=== PATIENT | female | born 1970 | race Caucasian/White ===

== ENCOUNTER 2018-12-27 16:53 | Inpatient (IN) | payer MEDICAID ==
[2019-01-04] MEDS ORDERED: KLONOPIN1 MG PO (12:49)
[2019-01-04] MEDS ORDERED: ESTRACE2 MG PO (12:49)
[2019-01-04] MEDS ORDERED: PROVERA 5 MG TAB5 MG PO (12:49)
[2019-01-04] MEDS ORDERED: NEXIUM20 MG PO (12:52)
[2019-01-07 08:07] LABS: HEMATOCRIT 40.3 % (36.0-48.0); HEMOGLOBIN 13.7 g/dL (12-16); MCH 31.5 pg (26.0-34.0); MCV 92.6 fL (80.0-100.0); MEAN PLATELET VOLUME 11.4 fL (7.4-10.4); RBC 4.35 10x6/uL (4.00-5.40); RDW 12.6 % (11.5-14.5); WBC 5.9 10x3/uL (4.8-10.8)
[2019-01-07 09:43] VITALS: BP 128/74; BMI 22.0
--- NOTE | 2019-01-07 12:33 | NUR ---
NOTICED SMALL WELP THAT IS RED ABOVE PT IV SITE IN LEFT ARM. IMMEDIATELY STOPPED IV FLUIDS AND MONITORED. SYMPTOMS DID NOT WORSEN. PT DOES NOT COMPLAIN OF ITCHING OR PAIN AT SITE. NOTIFIED ANESTHESIA. V.O TO CONTINUE TO MONITOR AND IF WORSENS LET THEM KNOW. WILL CONTINUE TO [facility] 1240 REASSESSED IV SITE. WELP HAS NOT GOTTEN WORSE OR EXTENDED. PT STILL C/O OF NO PAIN OR ITHCING.WILL CONTINUE TO [facility]
[2019-01-07 13:09] VITALS: BP 109/53
--- NOTE | 2019-01-07 14:57 | NUR ---
PT RECIVED FROM OR. NO SIGNS OF DISTRESS. IV TO LEFT WRIST PATENT NO REDNESS OR TENDERNESS. DENIES ANY FUTHER NEED AT THIS TIME.
[2019-01-07 18:32] VITALS: BP 109/53; BMI 21.8
--- NOTE | 2019-01-07 23:03 | NUR ---
I have reviewed this patient and I concur with the Shift Assessment completed by the Licensed Practical Nurse today this shift.
[2019-01-08] VITALS: BP 106/62
[2019-01-08 04:30] VITALS: BP 131/66
[2019-01-08 05:16] LABS: BASOPHILS 0.1 % (0-2); EOSINOPHILS 0.8 % (0-7); HEMATOCRIT 36.1 % (36.0-48.0); HEMOGLOBIN 11.9 g/dL (12-16); IMMATURE GRANULOCYTES 0.2 % (0-5); MCH 31.2 pg (26.0-34.0); MCV 94.5 fL (80.0-100.0); MEAN PLATELET VOLUME 12.3 fL (7.4-10.4); MONOCYTES 7.7 % (2-11); NEUTROPHILS 72.2 % (40-80); PLATELET COUNT 173 10x3/uL (130-400); RBC 3.82 10x6/uL (4.00-5.40); RDW 12.6 % (11.5-14.5)
[2019-01-08 05:38] LABS: ALBUMIN 2.3 g/dL (3.4-5.0); ALKALINE PHOSPHATASE 80 U/L (46-116); ALT (SGPT) 22 U/L (10-68); BILIRUBIN - TOTAL 0.26 mg/dL (0.2-1.3); CALC OSMOLALITY 276 mosm/kg (275-300); CARBON DIOXIDE 24.6 mmol/L (21.0-32.0); CHLORIDE - SERUM 108 mmol/L (98-107); CREATININE - SERUM 0.7 mg/dL (0.6-1.3); GLUCOSE 122 mg/dL (74-106); POTASSIUM - SERUM 4.3 mmol/L (3.5-5.1); PROTEIN - SERUM 5.4 g/dL (6.4-8.2); SODIUM 140 mmol/L (136-145); UREA NITROGEN 5 mg/dL (7-18); eGFR NON AFRICAN AMERICAN > 90 mL/min (90-120)
[2019-01-08 05:48] LABS: WBC 9.7 10x3/uL (4.8-10.8)
[2019-01-08 07:00] VITALS: BP 128/74
--- NOTE | 2019-01-08 08:03 | NUR ---
SLEEPING ON LEFT SIDE.PT IS WITHOUT DISTRESS.
[2019-01-08] MEDS ORDERED: ZOFRAN ODT4 MG/UDTAB PO (08:18)
[2019-01-08] MEDS ORDERED: HYDROCODON-ACE1 EAC7 PO (08:18)
[2019-01-08 11:00] VITALS: BP 104/59
--- NOTE | 2019-01-11 13:30 | MORECARE ---
CASE MANAGEMENT DISCHARGE SUMMARY PATIENT: ABDULLAHI EAST UNIT: [id number] ADM DATE: 01/07/19 AGE: 48 : 70 SEX: F ROOM/BED: D.2224 AUTHOR: STACIA FOURNIER PHYSICIAN: REFERRING PHYSICIAN: SERG BASURTO MD DATE OF SERVICE: 01/11/19 Discharge Plan Patient Name: ABDULLAHI EAST [facility] [facility] 1970 Planned Disposition: Anticipated Discharge Date: Discharge Date: 01/08/2019 Expected LOS: 0 Initial Reviewer: [email or web address] Initial Review Date: 01/11/2019 Generated: 01/11/19 2:29 pm Patient Name: ABDULLAHI EAST Page 23791 at 1330 All edits/amendments must be made on the electronic document DICTATION DATE: 01/11/19 1329 SUPERVISOR PIT AND AUXILIARIES: CALEB 01/11/19 1329 RPT#: [id number] DC DATE:01/08/19 STATUS: DIS IN [facility] [address] [facility] [place] [address] END OF REPORT
== END 2019-01-08 14:01 | disposition home or self-care (01) | DRG 328 ==
LOC: D.MS 01-07 07:44 → D.SDCHOLD 01-07 07:44 → D.OPS 01-07 10:00 → EDSTATUS 01-07 10:15 → D.OPS 01-07 10:15 → D.MS 01-07 10:15 → D.PAN 01-07 10:15 → D.MS 01-07 12:56
PROVIDERS: Anesthesiology; ADMIT Surgery; ATTEND Surgery
PROC: 0BQT4ZZ Repair Diaphragm, Percutaneous Endoscopic Approach (ICD-10-PCS; principal; 2019-01-07 10:00)
PROC: 0DV44CZ Restriction of Esophagogastric Junction with Extraluminal Device, Percutaneous Endoscopic Approach (ICD-10-PCS; 2019-01-07 10:00)
DX: K21.9 Gastro-esophageal reflux disease without esophagitis (principal); K44.9 Diaphragmatic hernia without obstruction or gangrene

== ENCOUNTER 2019-01-09 03:42 | Observation (INO) | payer MEDICAID ==
[~2019-01-09] VITALS: Ht 162.6 cm; Wt 57.3 kg
[~2019-01-09 03:42] MED LIST: ESTRACE2 MG PO; HYDROCODON-ACE1 EAC7 PO; KLONOPIN1 MG PO; NEXIUM20 MG PO; PROVERA 5 MG TAB5 MG PO; ZOFRAN ODT4 MG/UDTAB PO
[2019-01-09 04:34] LABS: BASOPHILS 0.2 % (0-2); EOSINOPHILS 2.4 % (0-7); HEMATOCRIT 40.1 % (36.0-48.0); HEMOGLOBIN 13.8 g/dL (12-16); IMMATURE GRANULOCYTES 0.2 % (0-5); LYMPHOCYTES 17.8 % (15-50); MCH 31.9 pg (26.0-34.0); MCHC 34.4 g/dL (31.0-37.0); MCV 92.8 fL (80.0-100.0); MEAN PLATELET VOLUME 12.6 fL (7.4-10.4); MONOCYTES 8.8 % (2-11); NEUTROPHILS 70.6 % (40-80); RBC 4.32 10x6/uL (4.00-5.40); RDW 12.8 % (11.5-14.5); WBC 8.9 10x3/uL (4.8-10.8)
[2019-01-09 04:36] LABS: PLATELET COUNT 222 10x3/uL (130-400)
[2019-01-09 04:37] LABS: APPEARANCE HAZY (CLEAR); BILIRUBIN NEGATIVE (NEGATIVE); COLOR YELLOW (YELLOW); GLUCOSE NEGATIVE (NEGATIVE); KETONE NEGATIVE (NEGATIVE); NITRITE NEGATIVE (NEGATIVE); PROTEIN NEGATIVE (NEGATIVE); UROBILINOGEN NORMAL (NORMAL)
[2019-01-09 05:12] LABS: ALBUMIN 2.5 g/dL (3.4-5.0); ALKALINE PHOSPHATASE 102 U/L (46-116); AMYLASE - SERUM 23 U/L (25-115); BILIRUBIN - TOTAL 0.33 mg/dL (0.2-1.3); CALC OSMOLALITY 276 mosm/kg (275-300); CALCIUM 7.8 mg/dL (8.5-10.1); CARBON DIOXIDE 23.9 mmol/L (21.0-32.0); CHLORIDE - SERUM 107 mmol/L (98-107); CREATININE - SERUM 0.7 mg/dL (0.6-1.3); GLUCOSE 104 mg/dL (74-106); LIPASE 64 U/L (73-393); PROTEIN - SERUM 5.6 g/dL (6.4-8.2); SODIUM 140 mmol/L (136-145); TROPONIN-I < 0.017 ng/mL (0.000-0.060); UREA NITROGEN 6 mg/dL (7-18); eGFR NON AFRICAN AMERICAN > 90 mL/min (90-120)
[2019-01-09 05:13] LABS: ALT (SGPT) 36 U/L (10-68); POTASSIUM - SERUM 3.5 mmol/L (3.5-5.1)
[2019-01-09 08:39] VITALS: BP 132/77
[2019-01-09 13:28] VITALS: BP 112/66
--- NOTE | 2019-01-09 14:45 | NUR ---
PT AND WANTED PT DIET ADVANCED TO REGUALR FROM FULL LIQUID DIET. PT AND MADE AWARE THAT THIS NURSE SPOKE WITH DR. BASURTO AND HE GIVE THE OKAY FOR DIET.
[2019-01-09 18:03] VITALS: BP 104/60
[2019-01-09 18:37] VITALS: BP 112/66; Ht 162.6 cm; Wt 57.3 kg
[2019-01-09 20:00] VITALS: BP 114/57
[2019-01-10 03:15] VITALS: BP 111/56
[2019-01-10 04:00] VITALS: BP 110/66
--- NOTE | 2019-01-10 04:53 | NUR ---
I have reviewed this patient and I concur with the Shift Assessment completed by the Licensed Practical Nurse today this shift.
[2019-01-10 05:05] LABS: BASOPHILS 0.2 % (0-2); EOSINOPHILS 3.5 % (0-7); HEMATOCRIT 33.9 % (36.0-48.0); HEMOGLOBIN 11.4 g/dL (12-16); LYMPHOCYTES 29.8 % (15-50); MCH 31.3 pg (26.0-34.0); MCHC 33.6 g/dL (31.0-37.0); MCV 93.1 fL (80.0-100.0); MEAN PLATELET VOLUME 11.5 fL (7.4-10.4); NEUTROPHILS 58.5 % (40-80); PLATELET COUNT 196 10x3/uL (130-400); RBC 3.64 10x6/uL (4.00-5.40); RDW 13.1 % (11.5-14.5)
[2019-01-10 05:31] LABS: ALBUMIN 2.2 g/dL (3.4-5.0); ALKALINE PHOSPHATASE 98 U/L (46-116); ALT (SGPT) 29 U/L (10-68); BILIRUBIN - TOTAL 0.26 mg/dL (0.2-1.3); CALC OSMOLALITY 281 mosm/kg (275-300); CALCIUM 7.4 mg/dL (8.5-10.1); CARBON DIOXIDE 23.7 mmol/L (21.0-32.0); CHLORIDE - SERUM 109 mmol/L (98-107); CREATININE - SERUM 0.6 mg/dL (0.6-1.3); GLUCOSE 97 mg/dL (74-106); POTASSIUM - SERUM 3.2 mmol/L (3.5-5.1); PROTEIN - SERUM 5.1 g/dL (6.4-8.2); SODIUM 143 mmol/L (136-145); UREA NITROGEN 5 mg/dL (7-18); eGFR NON AFRICAN AMERICAN > 90 mL/min (90-120)
--- NOTE | 2019-01-10 09:09 | NUR ---
PT RESTING IN BED. " I WANT TO GO HOME, I AM DOING FINE. I FEEL SO MUCH BETTER." PT DENIES PAIN, N/V. NO S/S OF ACUTE DISTRESS. AT BEDSIDE. CL IN PLACE. DC IV FLUIDS AND ORTHOPAEDIC TECHNOLOGIST PER PT REQUEST.
[2019-01-10 09:29] VITALS: BP 126/77
--- NOTE | 2019-01-10 10:13 | NUR ---
DC INSTRUCTIONS AND EDUCATION DONE WITH PT. IV DC WITH TIP IN TACT. ALL BELONGINGS SENT DOWN WITH . PT TOOK OFF FLOOR VIA WC BY VOLUNTEER. NO S/S OF ACUTE DISTRESS.
== END 2019-01-10 10:46 | disposition home or self-care (01) ==
LOC: D.ER 03:42 → OBSVTIME 05:29 → D.MS 05:29
PROVIDERS: Family Medicine; ADMIT Surgery; ATTEND Surgery
DX: J93.9 Pneumothorax, unspecified (principal); R10.9 Unspecified abdominal pain; K44.9 Diaphragmatic hernia without obstruction or gangrene; K21.9 Gastro-esophageal reflux disease without esophagitis; J98.11 Atelectasis

== ENCOUNTER 2019-01-26 08:04 | Emergency (ER) | payer MEDICAID ==
[~2019-01-26] VITALS: Ht 162.6 cm; Wt 54.5 kg
[2019-01-26 08:05] VITALS: Ht 162.6 cm; Wt 54.5 kg
[2019-01-26 08:42] LABS: BASOPHILS 0.2 % (0-2); EOSINOPHILS 2.2 % (0-7); HEMATOCRIT 43.6 % (36.0-48.0); HEMOGLOBIN 15.1 g/dL (12-16); IMMATURE GRANULOCYTES 0.5 % (0-5); MCHC 34.6 g/dL (31.0-37.0); MCV 92.4 fL (80.0-100.0); MEAN PLATELET VOLUME 11.8 fL (7.4-10.4); NEUTROPHILS 70.1 % (40-80); RBC 4.72 10x6/uL (4.00-5.40); RDW 12.6 % (11.5-14.5); WBC 13.2 10x3/uL (4.8-10.8)
[2019-01-26 08:44] LABS: PLATELET COUNT 253 10x3/uL (130-400)
[2019-01-26 08:56] LABS: ALBUMIN 3.3 g/dL (3.4-5.0); ALKALINE PHOSPHATASE 87 U/L (46-116); ALT (SGPT) 31 U/L (10-68); BILIRUBIN - TOTAL 0.59 mg/dL (0.2-1.3); CALC OSMOLALITY 276 mosm/kg (275-300); CALCIUM 8.5 mg/dL (8.5-10.1); CARBON DIOXIDE 23.6 mmol/L (21.0-32.0); CHLORIDE - SERUM 103 mmol/L (98-107); CREATININE - SERUM 0.9 mg/dL (0.6-1.3); GLUCOSE 137 mg/dL (74-106); POTASSIUM - SERUM 3.8 mmol/L (3.5-5.1); PROTEIN - SERUM 6.9 g/dL (6.4-8.2); SODIUM 137 mmol/L (136-145); UREA NITROGEN 14 mg/dL (7-18); eGFR NON AFRICAN AMERICAN 71 mL/min (90-120)
[2019-01-26 09:01] LABS: AMYLASE - SERUM 33 U/L (25-115); LIPASE 92 U/L (73-393)
[2019-01-26 09:02] LABS: TROPONIN-I < 0.017 ng/mL (0.000-0.060)
[2019-01-26] MEDS ORDERED: DILAUDID4 MG PO (10:14)
[2019-01-26 10:43] VITALS: BP 115/78
[2019-01-26] MEDS ORDERED: ZOFRAN ODT4 MG/UDTAB PO (10:47)
[2019-01-26] MEDS ORDERED: ULTRAM50 MG PO (22:57)
== END 2019-01-26 10:44 | disposition home or self-care (01) ==
LOC: D.ER 08:04
PROVIDERS: Emergency Medicine
DX: R10.11 Right upper quadrant pain (principal)

== ENCOUNTER 2019-01-26 20:44 | Observation (INO) | payer MEDICAID ==
[~2019-01-26] VITALS: Ht 162.6 cm; Wt 54.4 kg
[~2019-01-26 20:44] MED LIST changes: +DILAUDID4 MG PO
--- NOTE | 2019-01-26 20:51 | NUR ---
PT AT BEDSIDE NOW STATES THAT PT HAD SYNCOPAL AT HOME TONIGHT IN BATHROOM AND HE CALLED EMS.
--- NOTE | 2019-01-26 21:00 | NUR ---
GUARDADO PLACED AT THIS TIME. TOLERATED WITH SOME DISCOMFORT. 3502ML DRAINED OF DARK YELLOW URINE AT THIS TIME.
[2019-01-26 21:04] LABS: BASOPHILS 0.1 % (0-2); EOSINOPHILS 0.3 % (0-7); HEMATOCRIT 40.7 % (36.0-48.0); HEMOGLOBIN 14.1 g/dL (12-16); IMMATURE GRANULOCYTES 0.5 % (0-5); LYMPHOCYTES 13.9 % (15-50); MCH 31.8 pg (26.0-34.0); MCHC 34.6 g/dL (31.0-37.0); MCV 91.7 fL (80.0-100.0); MEAN PLATELET VOLUME 11.8 fL (7.4-10.4); MONOCYTES 6.4 % (2-11); NEUTROPHILS 78.8 % (40-80); RBC 4.44 10x6/uL (4.00-5.40); RDW 12.6 % (11.5-14.5); WBC 15.2 10x3/uL (4.8-10.8)
[2019-01-26 21:06] LABS: PLATELET COUNT 334 10x3/uL (130-400)
[2019-01-26 21:12] LABS: APPEARANCE CLEAR (CLEAR); BILIRUBIN NEGATIVE (NEGATIVE); COLOR YELLOW (YELLOW); GLUCOSE NEGATIVE (NEGATIVE); KETONE SMALL mg/dL (NEGATIVE); NITRITE NEGATIVE (NEGATIVE); PROTEIN NEGATIVE (NEGATIVE); SPECIFIC GRAVITY 1.005 (1.005-1.020); UROBILINOGEN NORMAL (NORMAL)
[2019-01-26 21:17] LABS: ALBUMIN 3.2 g/dL (3.4-5.0); ALKALINE PHOSPHATASE 87 U/L (46-116); ALT (SGPT) 27 U/L (10-68); BILIRUBIN - TOTAL 0.52 mg/dL (0.2-1.3); CALC OSMOLALITY 272 mosm/kg (275-300); CALCIUM 8.7 mg/dL (8.5-10.1); CARBON DIOXIDE 21.5 mmol/L (21.0-32.0); CHLORIDE - SERUM 102 mmol/L (98-107); CREATININE - SERUM 0.8 mg/dL (0.6-1.3); GLUCOSE 121 mg/dL (74-106); LIPASE 65 U/L (73-393); SODIUM 136 mmol/L (136-145); UREA NITROGEN 13 mg/dL (7-18); eGFR NON AFRICAN AMERICAN 81 mL/min (90-120)
[2019-01-26 21:18] LABS: POTASSIUM - SERUM 4.6 mmol/L (3.5-5.1)
--- NOTE | 2019-01-26 21:45 | NUR ---
PT FEELING BETTER AT THIS TIME. FAMILY AT BEDSIDE.
--- NOTE | 2019-01-26 22:12 | NUR ---
PT ARRIVED TO FLOOR BY BED, INTRODUCED SELF TO PT. PT DENIES FURTHER NEEDS AT THIS TIME. CALL LIGHT IN REACH. VITALS STABLE. WILL CTM.
--- NOTE | 2019-01-26 22:20 | NUR ---
REC'D PATIENT FROM ER WITH GUESTS AT BEDSIDE. PATIENT DENIES NEEDS AT THIS TIME. BED IN LOWEST POSITION AND CL WITHIN REACH. ENCOURAGED THE PATIENT TO CALL IF SHE HAS NEEDS. WILL CONTINUE TO MONITOR.
[2019-01-26 22:49] VITALS: BP 149/80; BMI 20.6
[2019-01-26] MEDS ORDERED: ULTRAM50 MG PO (22:57)
--- NOTE | 2019-01-26 23:00 | NUR ---
PATIENT STATED SHE WOULD RATHER HAVE ORAL MEDICATIONS TO HELP HER TO HAVE A BM INSTEAD OF AN ENEMA IF POSSIBLE
[2019-01-27 00:39] VITALS: BP 118/71
--- NOTE | 2019-01-27 02:35 | NUR ---
SPOKE WITH THE PATIENT AGAIN IN REGARDS TO ENEMA ORDERED. I ASKED THE PATIENT IF SHE WANTED TO TRY THE ENEMA OR IF SHE STILL WANTED TO WAIT FOR THE DOCTOR AND TALK TO THEM ABOUT ORAL MEDS. SHE STATED "I DON'T THINK I CAN DO IT" AND REQUESTED TO WAIT AND SPEAK WITH THE DOCTOR.
[2019-01-27 04:23] LABS: BASOPHILS 0.2 % (0-2); EOSINOPHILS 1.5 % (0-7); HEMATOCRIT 35.2 % (36.0-48.0); HEMOGLOBIN 11.8 g/dL (12-16); IMMATURE GRANULOCYTES 0.3 % (0-5); LYMPHOCYTES 25.9 % (15-50); MCH 31.3 pg (26.0-34.0); MCHC 33.5 g/dL (31.0-37.0); MCV 93.4 fL (80.0-100.0); MEAN PLATELET VOLUME 11.3 fL (7.4-10.4); MONOCYTES 9.5 % (2-11); NEUTROPHILS 62.6 % (40-80); RBC 3.77 10x6/uL (4.00-5.40); RDW 12.8 % (11.5-14.5)
[2019-01-27 04:32] LABS: PLATELET COUNT 258 10x3/uL (130-400); WBC 10.7 10x3/uL (4.8-10.8)
[2019-01-27 04:37] LABS: ALBUMIN 2.4 g/dL (3.4-5.0); ALKALINE PHOSPHATASE 67 U/L (46-116); BILIRUBIN - TOTAL 0.32 mg/dL (0.2-1.3); CALCIUM 7.4 mg/dL (8.5-10.1); CARBON DIOXIDE 25.1 mmol/L (21.0-32.0); CHLORIDE - SERUM 110 mmol/L (98-107); CREATININE - SERUM 0.7 mg/dL (0.6-1.3); GLUCOSE 93 mg/dL (74-106); SODIUM 142 mmol/L (136-145); eGFR NON AFRICAN AMERICAN > 90 mL/min (90-120)
[2019-01-27 04:41] LABS: ALT (SGPT) 20 U/L (10-68); CALC OSMOLALITY 281 mosm/kg (275-300); PROTEIN - SERUM 5.1 g/dL (6.4-8.2); UREA NITROGEN 9 mg/dL (7-18)
[2019-01-27 06:22] VITALS: BP 111/59
[2019-01-27 07:28] VITALS: BP 110/55
--- NOTE | 2019-01-27 08:21 | NUR ---
Patient states she is at a 3/10. Wants to hold off on pain medication at this time. is concerned and doesn't want the pain to get out of hand. I explained that if she was higher than a 3 on the pain scale I would be in agreement with him. However, if a 3 was tolerable to her then we should wait.
--- NOTE | 2019-01-27 09:20 | NUR ---
REQUESTED AND RECEIVED SOME SPRITE TO HELP WITH HER UPSET STOMACH. CL IN REACH WCTM
[2019-01-27 11:19] LABS: % SATURATION 22 % (15-55); IRON 46 ug/dl (35-150); TOTAL IRON BIND CAPACITY 205 ug/dl (260-445); UNSAT IRON BIND CAPACITY 159 ug/dl (150-375)
[2019-01-27 11:54] VITALS: BP 112/60
--- NOTE | 2019-01-27 11:56 | NUR ---
SCD'S ON. CL IN REACH. PATIENT DRINKING HER MAG CITRATE WAITING TO GO TO CT.
[2019-01-27 15:22] VITALS: BP 102/60
--- NOTE | 2019-01-27 19:41 | NUR ---
PATIENT RESTING IN BED WITH NO S/S OF DISTRESS AND DENIES NEEDS AT THIS TIME. PATIENT STATES PAIN IS 0/10. BED IN LOWEST POSITION AND CALL LIGHT WITHIN REACH. ENCOURAGED THE PATIENT TO CALL IF SHE HAS NEEDS. WILL CONTINUE TO MONITOR.
[2019-01-27 20:19] VITALS: BP 112/70
--- NOTE | 2019-01-27 23:25 | NUR ---
SPOKE WITH PATIENT IN REGARDS TO ADMINISTERING ENEMA. PATIENT REFUSED ENEMA AT THIS TIME.
[2019-01-28 06:17] LABS: BASOPHILS 0.2 % (0-2); EOSINOPHILS 6.3 % (0-7); HEMATOCRIT 35.7 % (36.0-48.0); HEMOGLOBIN 11.6 g/dL (12-16); IMMATURE GRANULOCYTES 0.3 % (0-5); LYMPHOCYTES 23.5 % (15-50); MCH 31.1 pg (26.0-34.0); MCHC 32.5 g/dL (31.0-37.0); MEAN PLATELET VOLUME 12.4 fL (7.4-10.4); MONOCYTES 9.6 % (2-11); NEUTROPHILS 60.1 % (40-80); RBC 3.73 10x6/uL (4.00-5.40); RDW 13.2 % (11.5-14.5)
[2019-01-28 06:24] LABS: MCV 95.7 fL (80.0-100.0); PLATELET COUNT 197 10x3/uL (130-400)
[2019-01-28 06:31] LABS: CALC OSMOLALITY 276 mosm/kg (275-300); CALCIUM 7.8 mg/dL (8.5-10.1); CARBON DIOXIDE 26.5 mmol/L (21.0-32.0); CHLORIDE - SERUM 109 mmol/L (98-107); CREATININE - SERUM 0.6 mg/dL (0.6-1.3); GLUCOSE 80 mg/dL (74-106); POTASSIUM - SERUM 3.9 mmol/L (3.5-5.1); SODIUM 141 mmol/L (136-145); eGFR NON AFRICAN AMERICAN > 90 mL/min (90-120)
[2019-01-28 06:32] LABS: UREA NITROGEN 5 mg/dL (7-18)
--- NOTE | 2019-01-28 07:15 | NUR ---
REPORT RECEIVED. WILL CONTINUE WITH POC. PT CURRENTLY LYING SEMI FOWLERS. CALL LIGHT W/I REACH. AT BEDSIDE. PT IS COMPLAINING ON N/V AND PAIN AND REQUEST MEDICATION. WILL ADMINISTER ORDERED DOSE OF ZOFRAN AND PAIN MEDICATION. RR EVEN AND UNLABORED ON RA. NS INFUSING @75ML/HR VIA R.HAND. NO S/S OF DISTRESS NOTED. WILL CTM.
[2019-01-28 08:02] VITALS: BP 100/47
--- NOTE | 2019-01-28 08:04 | MORECARE ---
CASE MANAGEMENT DISCHARGE SUMMARY PATIENT: ABDULLAHI EAST UNIT: [id number] ADM DATE: 01/26/19 AGE: 48 : 70 SEX: F ROOM/BED: D.1202 AUTHOR: IRLANDA,DOC PHYSICIAN: REFERRING PHYSICIAN: WAGNER INFANTE MD DATE OF SERVICE: 01/28/19 Discharge Plan Patient Name: ABDULLAHI EAST Facility: [facility]:[place] : 1970 Planned Disposition: Home Anticipated Discharge Date: Discharge Date: Expected LOS: Initial Reviewer: [email or web address] Initial Review Date: 01/28/2019 Generated: 01/28/19 9:04 am Comments DCP- Discharge Planning Updated by [email or web address]: Mattie Selby on 01/28/19 7:[address] Patient Name: ABDULLAHI EAST Admission Status: ER Accout number: [id number] Admission Date: 01-26-2019 : 1970 Admission Diagnosis: Attending: WAGNER INFANTE Current LOS: 2 Anticipated DC Date: Planned Disposition: Home Primary Insurance: [place] PR[employer] OPTIONS [facility] Discharge Planning Comments: CM met with patient to complete initial dc planning assessment. CM educated patient on the CM role and verbal consent given by patient to complete assessment. CM verified patient's address, phone number, and emergency contact phone numbers. Patient lives at home and reports she is independent in her care. At discharge patient plans to return home and feels this is a safe discharge. CM discussed availability of home health, rehab services, and medical equipment. Patient denied known discharge needs Landscaping Supervisor: Mattie Selby DCPIA - Discharge Planning Initial Assessment Updated by [email or web address]: Mattie Selby on 01/28/19 8:02 am * Is the patient Alert and Oriented? Yes * How many steps to enter\exit or inside your home? * PCP shena in [place] * Pharmacy [facility] in [place] * Preadmission Environment Home with Family * ADLs Independent * List name and contact numbers for known caregivers / representatives who currently or will assist patient after discharge: Godwin [phone] * Additional services required to return to the preadmission environment? No * Can the patient safely return to the preadmission environment? Yes * Has this patient been hospitalized within the prior 30 days at any hospital? No Patient Name: ABDULLAHI EAST Page [phone] at 0804 All edits/amendments must be made on the electronic document DICTATION DATE: 01/28/19802 SENIOR ADULTS DIRECTOR: CALEB 01/28/19802 RPT#: [id number] DC DATE: STATUS: ADM IN [facility] [address] [place] [address] END OF REPORT
[2019-01-28 08:23] VITALS: Ht 162.6 cm; Wt 54.4 kg
--- NOTE | 2019-01-28 08:45 | NUR ---
ORDERED DOSE OF ZOFRAN AND DILUADID ADMINISTERED. PT DENIES ANY FURTHER NEEDS. AM MEDICATIONS ADMINISTERED. NS INFUSING @75ML/HR VIA R.HAND PIV. RR EVEN AND UNLABORED. PT CURRENTLY RESTING. VSS AND WNL. GUARDADO IN PLACE AND DRAINING URINE. WILL CTM. ASSESSMENT AND CARE PLAN COMPLETE.
--- NOTE | 2019-01-28 10:21 | NUR ---
I have reviewed this patient and I concur with the Shift Assessment completed by the Licensed Practical Nurse today this shift.
[2019-01-28 11:08] VITALS: BP 114/68
--- NOTE | 2019-01-28 11:10 | NUR ---
PT CURRENTLY RESTING. VSS AND WNL. NO S/S OF DISTRESS. WILL CTM.
--- NOTE | 2019-01-28 11:32 | NUR ---
ENTERED THE ROOM AND PT WAS REQUESTING PAIN MEDICATION AND MOANING OUT. ADMINISTERED ORDERED DOSE OF DILUADID. PT WAS SITTING ON BEDPAN AND REQUESTED TO BE TAKEN OFF. PT HAD SMALL BROWN RUNNY BM. CLEANED PT AND REMOVED BEDPAN. ASKED PT WHAT SHE DID AT HOME AND SHE STATED "I DONT GET UP." EVEN THOUGH PT IS MORE THAN ABLE TO GET UP WITH ASSISTANCE SHE CONTINUES TO CHOOSE TO STAY IN BED AND USE THE BEDPAN. WILL ATTEMPT TO INSTRUCT HER THE IMPORTANCE OF AMBULATING. WILL CTM.
--- NOTE | 2019-01-28 12:22 | NUR ---
REMOVED GUARDADO CATHETER WITH 1000ML OF YELLOW URINE. INSTRUCTED PT ON THE IMPORTANCE OF BLADDER TRAINING AND STRENGTHENING PELVIC FLOOR. PT VERBALIZED UNDERSTANDING. WILL CTM.
[2019-01-28 15:03] VITALS: BP 111/74
--- NOTE | 2019-01-28 18:27 | NUR ---
PT CURRENTLY LYING ON RIGHT SIDE. CALL LIGHT W/I REACH. PT IS RESTING AT THE MOMENT. AT BEDSIDE. RR EVEN AND UNLABORED ON RA. NS INFUSING @75ML/HR VIA RIGHT HAND PIV. NO S/S OF DISTRESS NOTED. WILL PASS REPORT AND CONTINUE WITH POC.
--- NOTE | 2019-01-28 19:40 | NUR ---
PATIENT UP AMBULATING WITH . NO S/S OF DISTRESS. WILL CONTINUE TO MONITOR.
[2019-01-28 19:56] VITALS: BP 114/61
[2019-01-28 23:37] VITALS: BP 115/49
[2019-01-29 03:59] VITALS: BP 115/68
--- NOTE | 2019-01-29 07:00 | NUR ---
AM ROUNDS- PT RESTING COMFORTABLY IN BED, EASILY AROUSES TO VOICE, PT A/O X4, RESP EVEN AND NONLABORED ON RA. RT HAND IV INFUSING NS AT 75CC/HR. VITAL SIGNS TAKING AT THIS TIME. PT DENIES ANY NEEDS AT THIS TIME. CALL LIGHT IN REACH, BEDSIDE RAILS X2, NAD NOTED, WILL CONTINUE PLAN OF CARE.
[2019-01-29 07:06] LABS: CALC OSMOLALITY 282 mosm/kg (275-300); CALCIUM 7.9 mg/dL (8.5-10.1); CARBON DIOXIDE 26.6 mmol/L (21.0-32.0); CHLORIDE - SERUM 110 mmol/L (98-107); CREATININE - SERUM 0.7 mg/dL (0.6-1.3); GLUCOSE 84 mg/dL (74-106); POTASSIUM - SERUM 3.5 mmol/L (3.5-5.1); SODIUM 144 mmol/L (136-145); eGFR NON AFRICAN AMERICAN > 90 mL/min (90-120)
[2019-01-29 07:10] LABS: UREA NITROGEN 3 mg/dL (7-18)
[2019-01-29 07:16] LABS: BASOPHILS 0.3 % (0-2); EOSINOPHILS 9.1 % (0-7); HEMATOCRIT 36.2 % (36.0-48.0); HEMOGLOBIN 11.9 g/dL (12-16); IMMATURE GRANULOCYTES 0.3 % (0-5); LYMPHOCYTES 30.2 % (15-50); MCH 31.2 pg (26.0-34.0); MCHC 32.9 g/dL (31.0-37.0); MEAN PLATELET VOLUME 12.8 fL (7.4-10.4); MONOCYTES 9.8 % (2-11); NEUTROPHILS 50.3 % (40-80); PLATELET COUNT 188 10x3/uL (130-400); RBC 3.81 10x6/uL (4.00-5.40); RDW 13.1 % (11.5-14.5)
[2019-01-29 07:18] LABS: WBC 6.8 10x3/uL (4.8-10.8)
[2019-01-29 07:27] VITALS: BP 131/73
[2019-01-29 08:13] LABS: FOLATE (FOLIC ACID) - SERUM 9.4 ng/mL (>3.0)
--- NOTE | 2019-01-29 08:35 | NUR ---
AM MEDS GIVEN AT THIS TIME. PT ONLY C/O HEADACHE, 2/10 PAIN. GAVE 650MG OF TYLENOL[address] DR. BASURTO AT BEDSIDE, PT DENIES ANY PAIN TO ABD AT THIS TIME. CALL LIGHT IN REACH, NAD NOTED, WILL CONTINUE PLAN OF CARE.
--- NOTE | 2019-01-29 12:04 | NUR ---
VITAL SIGNS DONE AT THIS TIME. PT DENIES ANY ABD PAIN AT THIS TIME. ASKED FOR [place] SODA AND A CUP OF ICE. WILL PROVIDE PT WITH SODA AND ICE. PT DENIES ANY OTHER NEEDS AT THIS TIME. CALL LIGHT IN REACH, NAD NOTED, WILL CONTINUE TO MONITOR.
[2019-01-29 12:07] VITALS: BP 117/69
[2019-01-29 16:21] VITALS: BP 111/65
--- NOTE | 2019-01-29 16:32 | NUR ---
GOT PT IN THE SHOWER, COMPLETE LINEN CHANGE DONE AT THIS TIME.
--- NOTE | 2019-01-29 18:11 | NUR ---
TORADOL GIVEN ORDERED, FOR PAIN LEVEL OF 4/10. PT REQUESTED ANOTHER BLANKET, WILL PROVIDE PT WITH BLANKET. PT DENIES ANY OTHER NEEDS AT THIS TIME. CALL LIGHT IN REACH, BEDSIDE RAILS X2, NAD NOTED.
--- NOTE | 2019-01-29 19:25 | NUR ---
LYING IN BED. ALERT AND ORIENTED X4. RESP EVEN AND NONLABORED. BBS CTA. ABD SOFT, TENDER WITH LAP SITES X5 NOTED. REPORTS ABD PAIN 4. STATES SHE HAD SMALL BM TODAY. NS @ 75 MLHR INFUSING IN RT HAND WITHOUT DIFF. AMBULATORY. NO DISTRESS. SR ELEVATED X2. CL IN REACH.
[2019-01-29 19:33] VITALS: BP 98/53
--- NOTE | 2019-01-29 20:30 | NUR ---
MEDICATED WITH ZOFRAN FOR C/O NAUSEA.
[2019-01-30 00:10] VITALS: BP 132/78
[2019-01-30 04:19] VITALS: BP 114/55
--- NOTE | 2019-01-30 06:39 | NUR ---
LYING IN BED. DROWSY, BUT AWAKENS TO VERBAL STIMULI. RESP SLIGHTLY LABORED WITH USE OF ABD ACCESORY MUSCLES. O2 @ 2LNC. CL IN REACH.
[2019-01-30 07:19] LABS: BASOPHILS 0.2 % (0-2); EOSINOPHILS 10.2 % (0-7); HEMATOCRIT 35.5 % (36.0-48.0); HEMOGLOBIN 11.6 g/dL (12-16); IMMATURE GRANULOCYTES 0.2 % (0-5); LYMPHOCYTES 28.4 % (15-50); MCH 30.7 pg (26.0-34.0); MCHC 32.7 g/dL (31.0-37.0); MCV 93.9 fL (80.0-100.0); MEAN PLATELET VOLUME 11.9 fL (7.4-10.4); MONOCYTES 7.1 % (2-11); NEUTROPHILS 53.9 % (40-80); PLATELET COUNT 215 10x3/uL (130-400); RBC 3.78 10x6/uL (4.00-5.40); RDW 12.9 % (11.5-14.5); WBC 5.8 10x3/uL (4.8-10.8)
[2019-01-30 07:43] LABS: CALC OSMOLALITY 280 mosm/kg (275-300); CALCIUM 7.8 mg/dL (8.5-10.1); CARBON DIOXIDE 25.1 mmol/L (21.0-32.0); CHLORIDE - SERUM 111 mmol/L (98-107); CREATININE - SERUM 0.7 mg/dL (0.6-1.3); GLUCOSE 100 mg/dL (74-106); POTASSIUM - SERUM 3.4 mmol/L (3.5-5.1); SODIUM 143 mmol/L (136-145); eGFR NON AFRICAN AMERICAN > 90 mL/min (90-120)
[2019-01-30 07:45] LABS: UREA NITROGEN 2 mg/dL (7-18)
[2019-01-30 08:09] VITALS: BP 131/76
--- NOTE | 2019-01-30 08:47 | NUR ---
AM MEDS GIVEN AT THIS TIME. PT DENIES ANY ABD PAIN AT THIS TIME. PT A/O X4, RESP EVEN AND NONLABORED ON RA. RT HAND INFUSING NS AT 75CC/HR. PT DENIES ANY NEEDS, CALL LIGHT IN REACH, BEDSIDE RAILS X2, NAD NOTED, WILL CONTINUE PLAN OF CARE.
[2019-01-30 12:52] VITALS: BP 131/73
[2019-01-30] MEDS ORDERED: MIRALAX17 GM PO (13:39)
--- NOTE | 2019-01-30 14:17 | NUR ---
PROVIDED VERBAL AND WRITTEN DISCHARGE TEACHING TO PT WHO VERBALIZED UNDERSTANDING REGARDING TEACHING. D/C RT HAND IV WITH CATHETER TIP INTACT. PT WAITING ON RIDE, WILL NOTIFY THIS NURSE WHEN READY FOR WHEELCHAIR.
--- NOTE | 2019-01-30 14:36 | NUR ---
PT LEFT UNIT VIA WHEELCHAIR, WITH ALL BELONGINGS, ACCOMPANIED BY FAMILY, NAD NOTED.
--- NOTE | 2019-01-30 14:50 | MORECARE ---
CASE MANAGEMENT DISCHARGE SUMMARY PATIENT: ABDULLAHI EAST UNIT: [id number] ADM DATE: 01/26/19 AGE: 48 : 70 SEX: F ROOM/BED: D.1202 AUTHOR: IRLANDA,DOC PHYSICIAN: REFERRING PHYSICIAN: WAGNER INFANTE MD DATE OF SERVICE: 01/30/19 Discharge Plan Patient Name: ABDULLAHI EAST Facility[facility]:[place] : 1970 Planned Disposition: Home Anticipated Discharge Date: 01/30/19 Discharge Date: 01/30/2019 Expected LOS: 4 Initial Reviewer: [email or web address] Initial Review Date: 01/28/2019 Generated: 01/30/19 3:50 pm Comments DCP- Discharge Planning Updated by [email or web address]: Mattie Selby on 01/28/19 7:[address] Patient Name: ABDULLAHI EAST Admission Status: ER Accout number: [id number] Admission Date: 01-26-2019 : 1970 Admission Diagnosis: Attending: WAGNER INFANTE Current LOS: 2 Anticipated DC Date: Planned Disposition: Home Primary Insurance: [place] [employer] Discharge Planning Comments: CM met with patient to complete initial dc planning assessment. CM educated patient on the CM role and verbal consent given by patient to complete assessment. CM verified patient's address, phone number, and emergency contact phone numbers. Patient lives at home and reports she is independent in her care. At discharge patient plans to return home and feels this is a safe discharge. CM discussed availability of home health, rehab services, and medical equipment. Patient denied known discharge needs Assistant Restaurant General Manager: Mattie Selby DCPIA - Discharge Planning Initial Assessment Updated by [email or web address]: Mattie Selby on 01/28/19 8:02 am * Is the patient Alert and Oriented? Yes * How many steps to enter\exit or inside your home? * PCP shena in [place] * Pharmacy [facility] in [place] * Preadmission Environment Home with Family * ADLs Independent * List name and contact numbers for known caregivers / representatives who currently or will assist patient after discharge: Godwin [phone] * Additional services required to return to the preadmission environment? No * Can the patient safely return to the preadmission environment? Yes * Has this patient been hospitalized within the prior 30 days at any hospital? No Last DP export: 01/28/19 7:04 a Patient Name: ABDULLAHI EAST Page 18788 at 1450 All edits/amendments must be made on the electronic document DICTATION DATE: 01/30/191449 PRODUCT TRANSFER PUMPER: CALEB 01/30/191449 RPT#: [id number] DC DATE:01/30/19 STATUS: DIS IN [facility] [address] [place] [address] END OF REPORT
== END 2019-01-30 14:37 | disposition home or self-care (01) ==
LOC: D.ER 20:44 → D.M3 20:59 → OBSVTIME 20:59 → D.M3 20:59
PROVIDERS: Family Medicine; ADMIT Internal Medicine Nephrology; ATTEND Internal Medicine Nephrology
DX: K59.00 Constipation, unspecified (principal); R55 Syncope and collapse; R33.9 Retention of urine, unspecified; D64.9 Anemia, unspecified; K21.9 Gastro-esophageal reflux disease without esophagitis; F41.9 Anxiety disorder, unspecified; E44.0 Moderate protein-calorie malnutrition; Z98.890 Other specified postprocedural states; R10.9 Unspecified abdominal pain; E83.51 Hypocalcemia